=== PATIENT | female | born 1985 | race Caucasian/White ===

== ENCOUNTER 2025-02-13 15:32 | Inpatient (IN) ==
[2025-02-13] MEDS ORDERED: iohexoL-300 100 ML VIAL ONE (16:24)
[2025-02-13] MEDS: HYDROmorphone 0.5 MG/0.5 ML SYRINGE IVP STA ×2 (16:37→19:05)
[2025-02-13] MEDS: ONDANSETRON 4 MG/2 ML VIAL IVP STA (16:37)
[2025-02-13 16:45] LABS: HCG,QUALITATIVE BLOOD NEGATIVE
[2025-02-13 16:57] LABS: BILIRUBIN,URINE SMALL (NEGATIVE); GLUCOSE, URINE (UA) NEGATIVE (NEGATIVE); KETONES,URINE (UA) 15 mg/dL (NEGATIVE); LEUKOCYTE ESTERASE, URINE NEGATIVE (NEGATIVE); NITRITE,URINE NEGATIVE (NEGATIVE); OCCULT BLOOD,URINE NEGATIVE (NEGATIVE); PROTEIN,URINE 30 mg/dL (NEGATIVE); UROBILINOGEN,URINE 1 (NORMAL) E.U./dL (NORMAL)
[2025-02-13 16:59] LABS: CLARITY,URINE CLEAR (CLEAR)
[2025-02-13] MEDS: iohexoL-300 100 ML VIAL IVP ONE (17:05)
[2025-02-13 17:06] LABS: BACTERIA,URINE Many /HPF (None Seen); MUCUS,URINE Few Strands; RBC,URINE None Seen /HPF (0-5); SQUAMOUS EPITHELIAL CELL,UR MANY Squamous (<= Few); WBC,URINE 0-3 /HPF (0-5)
--- NOTE | 2025-02-13 17:24 | CT Report ---
PROCEDURE: CT Abdomen/Pelvis W INDICATIONS: RLQ Abdominal pain, appendicitis suspected CONTRAST: Omni 300 100ml TECHNIQUE: After the administration of intravenous contrast, a CT scan of the abdomen and pelvis was performed. Images were recorded and evaluated at appropriate window settings. Reformats: coronal and sagittal. F or radiation dose reduction, the following was used: automated exposure control, adjustment of mA and /or kV according to patient size. COMPARISON: None. FINDINGS: Image quality: Diagnostic. Lower chest: Mild bibasilar dependent atelectasis is seen. Heart size is normal, no pericardial effus ion. Included portion of right breast implant is intact. Liver: No solid mass. Gallbladder: No radiopaque stones or wall thickening. Biliary tree: No intrahepatic or extrahepatic dilation, accounting for age. Spleen: No splenomegaly. Pancreas: No pancreatic ductal dilation. Adrenals: No adrenal nodule. Kidneys and ureters: No hydronephrosis. Small simple appearing left renal cyst is seen. No renal cyst ic lesion which requires follow up. No solid mass. Stomach, bowel and peritoneum: No abnormal appendix is visualized in right lower quadrant. Peripheral ly enhancing and septated hypodense area is noted in right lower quadrant measures up to 7.9 x 9.5 x 6.2 cm enlarged uterus craniocaudal, transverse and AP dimensions respectively best seen on series 2 image 99 and series 4 image 38. Associated adjacent bowel wall thickening and mild to moderate mesent nivia fat stranding is seen. No extraluminal air.. No peritoneal free fluid of free air. No other area of abnormal bowel wall thickening. Lymph nodes: No central or retroperitoneal adenopathy. Vessels: No infrarenal aortic aneurysm. Patent portal vein. PELVIS Reproductive organs: Unremarkable. Bladder: No abnormal wall thickening. Pelvic lymph nodes: No pelvic adenopathy by size criteria. Bones: No aggressive osseous abnormality. Other: No significant ventral or inguinal hernia. IMPRESSION: 1. Finding is concerning for large abscess collection in right lower quadrant measures up to 7.9 x 9. 5 x 6.2 cm in size, possibly secondary to subcutaneous appendicitis. No abnormal appendix is identifi ed. Differential diagnosis would include large cystic neoplasm. Clinical correlation is recommended. 2. No other area of abnormal bowel wall thickening. No peritoneal free fluid of free air. No gross en larged lymph nodes are seen in abdomen or pelvis. Reviewed by: Shorty Gilbert MD on 02/13/2025 5:23 PM PDT Approved by: Shorty Gilbert MD on 02/13/2025 5:23 PM PDT Station ID: [id number]
--- NOTE | 2025-02-13 17:31 | ED Physician Documentation ---
PD HPI ABD PAIN Stated complaint Stated Complaint: RLQ ABD PX Chief complaint Chief Complaint: Abd Pain Additional information Additional information: 39-year-old female with history of depression hypothyroid disorder presents emergency department for right lower quadrant pain that started on 01/27. She said that she had some nausea vomiting fevers and chills since then but has been trying to ignore it since then. Patient does note that she has been having some right lower quadrant swelling and mass sensation in her right abdomen as well she wakes up drenching in sweat throughout the night periodically she went to the walk-in clinic and they did some basic labs and patient was found to be tachycardic with a significant white count of 19 and sent her here to the emergency department for further evaluation. Patient denies any chance of her being she is on control last menses was late December. Meds/Allgy Home Medications Ambulatory Orders Medication Instructions Recorded Confirmed norethindrone 1 mg-ethinyl See Rx Instructions .Route 12/18/24 02/13/25 estradiol 10 mcg (24)-iron 10 .COMPLEX #84 tabs mcg(2) tablet (Lo Loestrin Fe) celecoxib 200 mg capsule 200 mg PO BID PRN pain #20 caps 02/13/25 02/13/25 escitalopram oxalate 5 mg tablet 10 mg PO QDAY 02/13/25 02/13/25 (Lexapro) levothyroxine 75 mcg capsule 75 mcg PO QDAY 02/13/25 02/13/25 Allergies Allergies Allergy/AdvReac Type Severity Reaction Status Date / Time Sulfa (Sulfonamide AdvReac Intermediate Rash Verified 02/13/25 15:58 Antibiotics) PFSH Active Problems All Active Problems (Updated 02/13/25 @ 18:50 by Joss Mckenzie DNP) Intra-abdominal abscess (Acute) Perforated appendicitis (Acute) Tachycardia (Acute) Elevated C-reactive protein (CRP) (Acute) Neutrophilic leukocytosis (Acute) Decreased range of motion of hip (Acute) Decrease in appetite (Acute) Night sweats (Acute) Right lower quadrant pain (Acute) Acute bacterial sinusitis (Acute) Social History Social History (Updated 02/13/25 @ 16:04 by Donna Solorzano RN) Smoking Status: Never smoker Living arrangement: At home Marital Status: Support Person: Yes Relationship: Spouse Do you feel safe in your home environment?: Yes Suffered physical, verbal, emotional, or financial abuse?: No POLST Patient has POLST: No Exam Constitutional normal general appearance, no apparent distress, average body habitus, no limitations and alert HENMT normocephalic and head/scalp atraumatic Eyes PERRL Chest inspection of chest normal Respiratory breath sounds equal bilaterally and normal respiratory effort Cardiovascular normal heart rate noted Gastrointestinal abdomen normal to inspection, abdomen soft to palpation, tender to palpation (severe) and (RLQ), nondistended and mass noted (RLQ) (firm) Genitourinary no CVA tenderness Extremities normal to inspection Psychiatry mental status grossly normal, oriented x3, thought process normal, cooperative and affect normal Results Vitals Vitals: Vital Signs - 24 hr 02/13/25 15:56 02/13/25 16:05 02/13/25 16:37 Temperature 37.7 C Temperature Source Temporal Artery Scan Pulse Rate 103 H Respiratory Rate 20 Blood Pressure 128/91 H O2 Saturation 99 O2 Source Room air Pain Intensity 7 7 7 02/13/25 16:49 02/13/25 17:14 02/13/25 18:10 Temperature Temperature Source Pulse Rate 94 89 Respiratory Rate 16 16 Blood Pressure 124/87 105/64 O2 Saturation 98 97 O2 Source Room air Pain Intensity 7 2 02/13/25 18:42 02/13/25 19:00 02/13/25 19:05 Temperature Temperature Source Pulse Rate 105 H Respiratory Rate 18 Blood Pressure 118/73 O2 Saturation 99 O2 Source Room air Pain Intensity 5 5 Oxygen O2 Source Room air Labs Labs: Laboratory Tests 02/13/25 02/13/25 14:48 16:36 Serum HCG, Qual NEGATIVE Urine Color DARK YELLOW Urine Clarity CLEAR Urine pH 6.0 Ur Specific [place] 1.020 Urine Protein 30 H Urine Glucose (UA) NEGATIVE Urine Ketones 15 H Urine Occult Blood NEGATIVE Urine Nitrite NEGATIVE Urine Bilirubin SMALL H Urine Urobilinogen 1 (NORMAL) Ur Leukocyte Esterase NEGATIVE Urine RBC None Seen Urine WBC 0-3 Ur Squamous Epith Cells MANY Squamous H Urine Bacteria Many H Urine Mucus Few Strands Ur Microscopic Review INDICATED Urine Culture Comments NOT INDICATED Rads (name of study) Abdomen pelvis CT with: Relevant Findings:: Final report received, Discussed with rads (Dr. Vladimir Wells), Critical result and EMP independent interpretation of test Interpretation: IMPRESSION: 1. Finding is concerning for large abscess collection in right lower quadrant measures up to 7.9 x 9.5 x 6.2 cm in size, possibly secondary to subcutaneous appendicitis. No abnormal appendix is identified. Differential diagnosis would include large cystic neoplasm. Clinical correlation is recommended. 2. No other area of abnormal bowel wall thickening. No peritoneal free fluid of free air. No gross enlarged lymph nodes are seen in abdomen or pelvis. PD Medical Decision Making ED course ED course: 39-year-old female presents emergency department for right lower quadrant pain differentials include but not limited to neoplasm, acute appendicitis, ruptured appendicitis, ovarian torsion, ovarian cyst. Labs are complete from the urgent care walk-in clinic she has significant leukocytosis, WBC 19.5 mild anemia hemoglobin 10.5 hematocrit 32.3 platelet count slightly elevated at 492 mild hyponatremia 133 glucose 143 CRP elevated at 16.4 normal lipase. Negative test. She has ketones in her urine no leukocytes or nitrates. CT abdomen pelvis was complete for further evaluation and reveals a very large abscess in the right lower quadrant measuring up to 7.9 x 9.5 x 6.2 cm possibly secondary to perforated appendicitis. Differentials from radiology include possible cystic neoplasm versus perforated appendicitis. I spoke with Dr. Wells who is the on-call radiologist tomorrow who has graciously agreed to drain the abscess tomorrow with the drain 2 sets of blood cultures were collected today due to tachycardia and leukocytosis and patient was started on IV Zosyn. I spoke with Cassy Murray who is graciously agreed to admit the patient to medicine services and I also spoke with surgeon Dr. Duenas who will follow along with the patient's case. Patient is agreeable to stay. Discharge Plan Discharge Patient Disposition: [facility] DC/Xfer Condition: Stable Clinical Impression: Perforated appendicitis, Neutrophilic leukocytosis, Intra-abdominal abscess
[2025-02-13] MEDS ORDERED: PIPERACILLIN/TAZOBACTAM 3.375 GM in SODIUM CHLORIDE 0.9% MINIBAG 100 ML IV STA (18:46)
[2025-02-13] MEDS: PIPERACILLIN/TAZOBACTAM 4.5 GM in SODIUM CHLORIDE 0.9% MINIBAG 100 ML IV STA (19:05)
--- NOTE | 2025-02-13 21:06 | HISTORY & PHYSICAL EXAMINATION ---
Chief Complaint Chief Complaint Chief Complaint: abdominal pain History of Present Illness Admitted From Admitted From:: home History Obtained From Records Reviewed: none History obtained from: patient and spouse History of Present Illness HPI Comment/Other: 39-year-old female who presents to the emergency department with abdominal pain and fever. She had an episode of what she thought was abdominal pain and gastroenteritis on January 27. She laid in bed that entire weekend with intermittent vomiting she attributed her abdominal pain to having pulled a muscle. She had small amount of loose stool around that time, but since that time has had persistent night sweats chills and fatigue as well as decreased isidoro etite. She continues to have occasional loose stools. The symptoms had been ongoing since 27 January and at times she has gotten so dizzy it has been difficult for her to stand upright. Therefore today she decided to go to the walk-in clinic. She is also noted pain in her groin and her hip particularly when she lifts up her right leg. She went to the walk-in clinic today and was referred to the emergency department due to concerning findings on her labs. Meds/Allgy Home Medications Ambulatory Orders Medication Instructions Recorded Confirmed norethindrone 1 mg-ethinyl See Rx Instructions .Route 12/18/24 02/13/25 estradiol 10 mcg (24)-iron 10 .COMPLEX #84 tabs mcg(2) tablet (Lo Loestrin Fe) celecoxib 200 mg capsule 200 mg PO BID PRN pain #20 caps 02/13/25 02/13/25 escitalopram oxalate 5 mg tablet 10 mg PO QDAY 02/13/25 02/13/25 (Lexapro) levothyroxine 75 mcg capsule 75 mcg PO QDAY 02/13/25 02/13/25 Allergies Allergies Allergy/AdvReac Type Severity Reaction Status Date / Time Sulfa (Sulfonamide AdvReac Intermediate Rash Verified 02/13/25 15:58 Antibiotics) PFSH Active Problems All Active Problems (Updated 02/13/25 @ 21:14 by CHALO Mcdowell) Depression (Acute) Hypothyroid (Acute) Intra-abdominal abscess (Acute) Perforated appendicitis (Acute) Tachycardia (Acute) Elevated C-reactive protein (CRP) (Acute) Neutrophilic leukocytosis (Acute) Decreased range of motion of hip (Acute) Decrease in appetite (Acute) Night sweats (Acute) Right lower quadrant pain (Acute) Acute bacterial sinusitis (Acute) Surgical History Surgical History (Updated 02/13/25 @ 21:14 by CHALO Mcdowell) S/P tonsillectomy S/P breast augmentation Social History Social History (Updated 02/13/25 @ 16:04 by Donna Solorzano RN) Smoking Status: Never smoker Living arrangement: At home Marital Status: Support Person: Yes Relationship: Spouse Level: Independent Do you feel safe in your home environment?: Yes Suffered physical, verbal, emotional, or financial abuse?: No POLST Patient has POLST: No Review of Systems Status of ROS: 10 or more systems reviewed and unremarkable except as noted in history and below Constitutional Reports: Fatigue, Fever, Chills, Malaise, Diaphoresis, Night sweats, Changes in appetite or eating habits and Poor appetite Eyes Denies: Vision loss Ears, nose, mouth, and throat Denies: Tinnitus or Vertigo Cardiovascular Reports: lightheadedness and other (Tachycardia); Denies: shortness of breath with exertion Respiratory Denies: Shortness of breath, Cough or SOB with exertion Gastrointestinal Reports: Abdominal pain, Nausea, Vomiting and Poor appetite; Denies: Blood in stool Genitourinary Denies: Painful urination, Urinary frequency, Urinary urgency or Pelvic pain Musculoskeletal Reports: Other (Right hip pain); Denies: Back pain Integumentary/Breast Reports: Rash Neurological Denies: Vertigo Psychiatric Denies: Depression or Anxiety Endocrine Reports: Fatigue Hematologic/Lymphatic Denies: Anemia Prior Level of Functionality: Functional adult. 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. Exam Constitutional normal general appearance and no apparent distress Well-groomed [facility] normocephalic Eyes conjunctivae normal and no scleral icterus Neck/C-Spine visual inspection normal Lymph no lymphadenopathy noted Chest inspection of chest normal Respiratory breath sounds equal bilaterally and normal respiratory effort Cardiovascular normal heart rate noted mild tachycardia, less than 110 Gastrointestinal nondistended and normoactive bowel sounds firmness in the RLQ on abdominal exam. no rebound. Genitourinary no CVA tenderness Back/Pelvis spine normal to inspection Extremities normal to inspection and normal to palpation Neurology no movement abnormality noted, speech normal and GCS 15 Psychiatry mental status grossly normal, oriented x3 and cooperative Skin skin color normal Conclusion/Plan Problem List (1) Intra-abdominal abscess: Plan: CT shows right lower quadrant intra-abdominal abscess likely secondary to perforated appendicitis. The abscess is large, 7.9 x 9.5 x 6.2 cm there is adjacent bowel wall thickening and mesenteric fat stranding. There is no peritoneal fluid or free air. The appendix is not visualized. Leukocytosis of 19.5 most likely related to this she does have a mild anemia with a hemoglobin of 10.5 we will continue to monitor. Her sodium is 133 we will continue to monitor I discussed this patient with Joss Mckenzie and decision was made to admit her to inpatient status for interventional radiology guided drainage of the intra- abdominal abscess. I have requested that she be n.p.o. after midnight. I have ordered ultrasound-guided drainage. I have ordered the appropriate culture and sensitivity. Have discussed this patient with Dr. Duenas who will see this patient in the morning and take over the surgical management of her intra-abdominal abscess. Pending cultures I have ordered Zosyn for antibiosis (2) Perforated appendicitis: Plan: Intra-abdominal abscesses most likely secondary to perforated appendicitis. Intra-abdominal abscess will need to be managed and patient will likely undergo interval appendectomy. I have discussed this patient with Dr. Duenas who will see her in the morning and further discuss surgical plan. (3) Hypothyroid: Plan: Will continue medication When she is able to take p.o. She is on Synthroid 75 mcg daily. (4) Depression: Plan: Continue escitalopram when she is able to take p.o. She is on 10 mg daily. (5) S/P breast augmentation: Plan: not relevant- no problems w anesthesia in the past (6) S/P tonsillectomy: Plan: not relevant, as a child. Plan I have spent 78 minutes in the care of this patient today. This includes time [id number], review and ordering of diagnostic imaging and laboratory studies and consultation with other providers. Monitoring the patient's signs symptoms, evaluation of medication effectiveness and patient's response to treatment. Lab Results Lab results reviewed: Yes Core Measures Anticipated LOS I expect patient to be DC'd or transferred within 96 hours.: Yes Issues Hospital Issues and Management Plan: Intra-abdominal abscess likely secondary to perforated appendicitis. Surgical source control with interventional radiology drainage and culture and sensitivity. Will place the patient on Zosyn. Surgical consultation is pending. DVT/VTE - Prophylaxis VTE/DVT Device ordered at admit?: Yes VTE/DVT Prophylaxis med ordered at admit?: No Not Ordered - Medical Reason: Contraindicated (Hold pending drainage procedure)
[2025-02-13] MEDS: SODIUM CHLORIDE 0.9% 1,000 ML IV SCH (21:43)
[2025-02-13] MEDS: oxyCODONE 5 MG TABLET PO PRN (21:43)
[2025-02-13] MEDS: ESCITALOPRAM 10 MG TABLET PO SCH (21:45)
[2025-02-14] MEDS: PIPERACILLIN/TAZOBACTAM 3.375 GM in SODIUM CHLORIDE 0.9% MINIBAG 100 ML IV SCH (04:11)
[2025-02-14] MEDS: SODIUM CHLORIDE FLUSH 0.9% 10 ML SYRINGE IVP SCH (04:12)
[2025-02-14] MEDS: HYDROmorphone 0.5 MG/0.5 ML SYRINGE IVP PRN (04:17)
[2025-02-14 05:16] LABS: BASOPHILS % (AUTO) 0.4 %; EOSINOPHILS % (AUTO) 0.1 %; HCT - HEMATOCRIT 28.8 % (37.0-47.0); HGB - HEMOGLOBIN 9.4 g/dL (12.0-16.0); LYMPHOCYTES % (AUTO) 6.9 %; MEAN CORPUSCULAR HEMOGLOBIN 29.7 pg (27.0-31.0); MEAN CORPUSCULAR HGB CONC 32.6 g/dL (32.0-36.0); MEAN CORPUSCULAR VOLUME 91.1 fL (81.0-99.0); MEAN PLATELET VOLUME 8.8 fL (7.9-10.8); MONOCYTES % (AUTO) 8.8 %; NEUTROPHILS % (AUTO) 82.8 %; PLT - PLATELET COUNT 433 10^3/uL (130-450); RED BLOOD COUNT 3.16 10^6/uL (4.20-5.40); RED CELL DISTRIBUTION WIDTH 12.9 % (12.0-15.0); WHITE BLOOD COUNT 17.6 x10^3/uL (4.8-10.8)
[2025-02-14 05:23] LABS: ABNORMAL LYMPHS % (MANUAL) 0 %; CALCIUM 8.3 mg/dL (8.5-10.3); CREATININE 0.8 mg/dL (0.6-1.3); POTASSIUM 4.1 mmol/L (3.5-4.5)
[2025-02-14 06:34] LABS: BAND NEUTROPHILS % (MANUAL) 3 %; DIFFERENTIAL COMMENT MANUAL DIFFERENTIAL; LYMPHOCYTES # (MANUAL) 1.9 10^3/uL (1.5-3.5); LYMPHOCYTES % (MANUAL) 11 %; MONOCYTES # (MANUAL) 1.6 10^3/uL (0.0-1.0); NEUTROPHILS # (MANUAL) 14.1 10^3/uL (1.5-6.6); PLATELET ESTIMATE, MANUAL NORMAL (130-450,000) (NORMAL); PLATELET MORPHOLOGY NORMAL APPEARANCE (NORMAL); RBC MORPHOLOGY (MULTIPLE) NORMAL APPEARANCE (NORMAL); WBC MORPHOLOGY (MULTIPLE) NORMAL APPEARANCE (NORMAL)
[2025-02-14] MEDS: LEVOTHYROXINE 75 MCG TABLET PO SCH ×2 (07:07→08:57)
--- NOTE | 2025-02-14 11:22 | CONSULTATION NOTE ---
Referring Provider Name of Referring Provider:: Marlin Holguin) Consult Date: 02/14/25 Chief Complaint Chief Complaint Chief Complaint: RLQ pain History of Present Illness Admitted From Admitted From:: ED History Obtained From Records Reviewed: yes History obtained from: patient, chart, primary team History of Present Illness HPI Comment/Other: 39 y/o F presents with abdominal pain and fevers. She has been experiencing sharp pain in her abdomen for more than two weeks. She initially thought she had a pulled muscle. At the time of her symptom onset (01/24/25), the patient noted some loose stools without blood, which have continued intermittently. The patient does report a period of time about two days after symptom onset when her pain improved significantly. She has had persistent night sweats and decreased appetite. Yesterday, she felt dizzy and presented to the walk in clinic where she demonstrated signs of systemic illness (tachycardia, leukocytosis) and was referred to the ED. There, she underwent CT which demonstrates a large abscess in the RLQ. For this, she was admitted, IR guided drain placement and IV antibiotics were ordered. Surgery is asked to follow along in the care of this patient. [facility] Active Problems All Active Problems Depression (Acute) Hypothyroid (Acute) Intra-abdominal abscess (Acute) Perforated appendicitis (Acute) Tachycardia (Acute) Elevated C-reactive protein (CRP) (Acute) Neutrophilic leukocytosis (Acute) Decreased range of motion of hip (Acute) Decrease in appetite (Acute) Night sweats (Acute) Right lower quadrant pain (Acute) Acute bacterial sinusitis (Acute) Surgical History Surgical History S/P tonsillectomy S/P breast augmentation Social History Social History (Updated 02/14/25 @ 11:19 by Mahi Duenas MD) Smoking Status: Never smoker Living arrangement: At home Marital Status: Support Person: Yes Relationship: Spouse Level: Independent Do you feel safe in your home environment?: Yes Suffered physical, verbal, emotional, or financial abuse?: No 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 Retired: No POLST Patient has POLST: No Meds/Allgy Home Medications Ambulatory Orders Medication Instructions Recorded Confirmed norethindrone 1 mg-ethinyl See Rx Instructions .Route 12/18/24 02/14/25 estradiol 10 mcg (24)-iron 10 .COMPLEX #84 tabs mcg(2) tablet (Lo Loestrin Fe) celecoxib 200 mg capsule 200 mg PO BID PRN pain #20 caps 02/13/25 02/14/25 escitalopram oxalate 5 mg tablet 10 mg PO QDAY 02/13/25 02/14/25 (Lexapro) levothyroxine 75 mcg capsule 75 mcg PO QDAY 02/13/25 02/14/25 naltrexone 4.5 mg capsule 4.5 mg PO HS 02/14/25 02/14/25 (Lotrexone) Allergies Allergies Allergy/AdvReac Type Severity Reaction Status Date / Time Sulfa (Sulfonamide AdvReac Intermediate Rash Verified 02/14/25 12:36 Antibiotics) Results Lab Results Lab results reviewed: Yes 02/14/25 05:05 02/14/25 05:05 Other Lab Results: Lab Results x24hrs 02/14/25 02/13/25 02/13/25 Range/Units 05:05 16:36 14:48 WBC 17.6 H (4.8-10.8) x10^3/uL RBC 3.16 L (4.20-5.40) 10^6/uL Hgb 9.4 L (12.0-16.0) g/dL Hct 28.8 L (37.0-47.0) % MCV 91.1 (81.0-99.0) fL MCH 29.7 (27.0-31.0) pg MCHC 32.6 (32.0-36.0) g/dL RDW 12.9 (12.0-15.0) % Plt Count 433 (130-450) 10^3/uL MPV 8.8 (7.9-10.8) fL Neut # (Auto) Not Reportable Lymph # (Auto) Not Reportable [place] # (Auto) Not Reportable Eos # (Auto) Not Reportable Baso # (Auto) Not Reportable Absolute Nucleated RBC Not Reportable Total Counted 100 Band Neuts % (Manual) 3 (0 - 10) % Abnorm Lymph % (Manual) 0 % Nucleated RBC % Not Reportable Neutrophils # (Manual) 14.1 H (1.5-6.6) 10^3/uL Lymphocytes # (Manual) 1.9 (1.5-3.5) 10^3/uL Monocytes # (Manual) 1.6 H (0.0-1.0) 10^3/uL Eosinophils # (Manual) 0.0 (0-0.7) 10^3/uL Basophils # (Manual) 0.0 (0-0.1) 10^3/uL Differential Comment MANUAL DIFFERENTIAL WBC Morphology NORMAL APPEARANCE (NORMAL) Platelet Estimate NORMAL (130-450,000) (NORMAL) Platelet Morphology NORMAL APPEARANCE (NORMAL) RBC Morph Micro Appear NORMAL APPEARANCE (NORMAL) Sodium 134 L (135-145) mmol/L Potassium 4.1 (3.5-4.5) mmol/L Chloride 102 (101-111) mmol/L Carbon Dioxide 25 (21-32) mmol/L Anion Gap 7.0 (6-13) BUN 6 (6-20) mg/dL Creatinine 0.8 (0.6-1.3) mg/dL Estimated GFR (MDRD) 79 L (>89) Glucose 95 (74-104) mg/dL Calcium 8.3 L (8.5-10.3) mg/dL Serum HCG, Qual NEGATIVE Urine Color DARK YELLOW Urine Clarity CLEAR (CLEAR) Urine pH 6.0 (5.0-7.5) PH Ur Specific [place] 1.020 (1.002-1.030) Urine Protein 30 H (NEGATIVE) mg/dL Urine Glucose (UA) NEGATIVE (NEGATIVE) mg/dL Urine Ketones 15 H (NEGATIVE) mg/dL Urine Occult Blood NEGATIVE (NEGATIVE) Urine Nitrite NEGATIVE (NEGATIVE) Urine Bilirubin SMALL H (NEGATIVE) Urine Urobilinogen 1 (NORMAL) (NORMAL) E.U./dL Ur Leukocyte Esterase NEGATIVE (NEGATIVE) Urine RBC None Seen (0-5) /HPF Urine WBC 0-3 (0-5) /HPF Ur Squamous Epith Cells MANY Squamous H (<= Few) Urine Bacteria Many H (None Seen) /HPF Urine Mucus Few Strands Ur Microscopic Review INDICATED Urine Culture Comments NOT INDICATED Diagnostic Imaging Results Diagnostic Imaging Results: positive Final report reviewed and Read independently Diagnostic Imaging Results Comments: CT abd/pelvis demonstrates large abscess in RLQ. Appendix is not identified. No free air. Conclusion and Plan Consultation Note Consultation Note: 39 y/o F with: 1. RLQ abscess - Likely perforated appendicitis; this diagnosis fits well with the patients history, physical exam, labs, and imaging. - Agree with IV abx, IR guided drain placement today for source control - Ok to adat once drain in place. Transition to PO abx when tolerating diet. - Consider repeat CT in 5 days to assess for improvement, if leukocytosis has not resolved. We may consider repeat CT at some point as well to determine utility of possible interval appendectomy. - I discussed this plan of care with the patient and the primary team. 2. hypothyroidism, depression - ok to restart home meds when able to tolerate diet - as per primary team Thank you for consulting the general surgery team in the care of this patient! We will continue to follow. Review of Systems Status of ROS: 10 or more systems reviewed and unremarkable except as noted in history and below Exam Exam GEN: No acute distress, appears stated age, alert and oriented HEENT: NCAT, MMM, EOMI NEURO: CN II-XII grossly intact, no obvious focal deficits CV: RRR PULM: non labored, on RA ABD: soft, slight RUQ and marked RLQ ttp, no rebound or guarding, negative Rovsing sign, +psoas sign CIRCULATORY: no clubbing, cyanosis, or edema SKIN: no lesions appreciated LYMPH: no obvious lymphadenopathy MSK: 4/4 strength in all extremities PSYCH: Affect is appropriate
--- NOTE | 2025-02-14 12:08 | PHARMACY PROGRESS NOTE ---
Best Possible Medication History Admit Date and Time: 02/13/251935 Home Medications Medication Instructions Recorded Confirmed Type norethindrone 1 mg-ethinyl See Rx Instructions .Route 12/18/24 02/14/25 Rx estradiol 10 mcg (24)-iron 10 .COMPLEX #84 tabs mcg(2) tablet (Lo Loestrin Fe) celecoxib 200 mg capsule 200 mg PO BID PRN pain #20 caps 02/13/25 02/14/25 Rx escitalopram oxalate 5 mg tablet 10 mg PO QDAY 02/13/25 02/14/25 History (Lexapro) levothyroxine 75 mcg capsule 75 mcg PO QDAY 02/13/25 02/14/25 History naltrexone 4.5 mg capsule 4.5 mg PO HS 02/14/25 02/14/25 History (Lotrexone) Processed by: Pharmacy Medications reviewed in ED?: No Medication History completed: Yes Patient Interview: Completed Secondary Source(s): Insurance records [facility] Statement: Per patient interview with pharmacist and review of [employer] records. As the person ultimately responsible for medication therapy, providers are able to order a medication from an existing home medication list in [facility] via the "Reconcile Routine" prior to Confirmation of that medication by telecommunications support. Such practice is discouraged except when the physician, in their clinical judgment, deems that a medical need exists for a medication without regard to previous use.
[2025-02-14] MEDS ORDERED: LIDOCAINE-MPF 1% 5 ML VIAL ONE (12:47)
[2025-02-14] MEDS: LIDOCAINE-MPF 1% 5 ML VIAL TD ONE (13:48)
--- NOTE | 2025-02-14 15:41 | CT Report ---
PROCEDURE: CT Peritoneal Absc Drain PREPROCEDURE DIAGNOSIS: Perforated appendicitis. POSTPROCEDURE DIAGNOSIS: S/P technically successful CT-guided right lower quadrant abscess drainage OPERATIVE PHYSICIAN: Caio Wells M.D. OPERATIVE PROCEDURES PERFORMED: CT-guided right lower quadrant abscess drainage TECHNIQUE: Informed consent was obtained from the patient. The patient was sterilely prepped and draped. 1% lid ocaine was used as a local anesthetic. Under CT guidance, a 18-gauge DTN needle was advanced into the fluid collection. After a small amount of fluid returned through the needle, exchange was made over a 0.035 inch wire, and the tract was serially dilated to allow for placement of a 12 Serbian pigtail d rainage tube. Approximately 20 ml of magaly pus fluid were aspirated. A sample was sent for laboratory studies. The catheter was placed and pigtail position and was sterilely secured in sterilely bandage d. It was set to external gravity bag drainage. The patient tolerated the procedure well with no imme diate complications noted. FINDINGS: Uncomplicated access to the abscess. IMPRESSION: 1. Technically successful CT-guided right lower quadrant abscess drainage Reviewed by: Caio Wells MD on 02/14/2025 3:40 PM PDT Approved by: Caio Wells MD on 02/14/2025 3:40 PM PDT Station ID: [id number]
[2025-02-14] MEDS: ACETAMINOPHEN 325 MG TABLET PO PRN (17:12)
--- NOTE | 2025-02-14 18:12 | PROVIDER PROGRESS NOTE ---
Subjective Prog Note Date Prog Note Date: 02/14/25 Subjective Subjective: She feels a bit better after overnight abx, and even better after drain placement. Still having occasional sweats. Poor appetite. Current Medications Current Medications Current Medications: Current Medications Generic Name Dose Route Start Last Admin Trade Name Freq PRN Reason Stop Dose Admin Acetaminophen 650 mg 02/13/25 20:43 02/14/25 17:12 Acetaminophen 325 Mg Tablet PO 650 mg Q4HR PRN Administration Pain 1 to 4, or Fever Escitalopram Oxalate 10 mg 02/13/25 20:43 02/14/25 09:01 Escitalopram 10 Mg Tablet PO 10 mg DAILY LEN Administration Hydromorphone HCl 0.5 mg 02/13/25 21:04 02/14/25 12:31 Hydromorphone 0.5 Mg/0.5 Ml Syringe IVP 0.5 mg Q2H PRN Administration Severe Pain (Level 7-10) Piperacillin Sod/Tazobactam 100 mls @ 25 mls/hr 02/14/25 04:00 02/14/25 16:52 Sod 3.375 gm/ Sodium Chloride IV Infused Q8H LEN Infusion Sodium Chloride 1,000 mls @ 100 mls/hr 02/13/25 20:43 02/14/25 07:52 Normal Saline 0.9% IV 100 mls/hr .Q10H LEN Administration Levothyroxine Sodium 75 mcg 02/14/25 09:00 02/14/25 09:01 Levothyroxine 75 Mcg Tablet PO 75 mcg 0600 LEN Administration Ondansetron HCl 4 mg 02/13/25 20:43 Ondansetron 4 Mg/2 Ml Vial IVP Q6HR PRN Nausea / Vomiting Oxycodone HCl 5 mg 02/13/25 20:43 02/14/25 17:12 Oxycodone 5 Mg Tablet PO 5 mg Q4HR PRN Administration Pain 5 to 7 Patient Own Med [Lo 1 each 02/14/25 09:00 02/14/25 10:19 Loestrin Fe] PO Not Given DAILY LEN Sodium Chloride 10 ml 02/13/25 20:43 Sodium Chloride Flush 0.9% 10 Ml Syringe IVP PRN PRN NEEDED PER PROVIDER ORDERS Sodium Chloride 10 ml 02/14/25 01:00 02/14/25 17:03 Sodium Chloride Flush 0.9% 10 Ml Syringe IVP Not Given 0100,0900,1700 [facility] Objective Vital Signs/Intake & Output Reviewed Vital Signs: Yes Vital Signs: Vital Signs x48h Temp Pulse Resp BP Pulse Ox 02/14/25 15:43 36.7 C 90 20 99/60 96 Intake & Output: Intake & Output 02/11/25 02/12/25 02/13/25 02/14/25 23:59 23:59 23:59 23:59 Intake Total 100 100 1200 / 1200 Output Total Balance 100 / 100 1199 / 1199 Weight (kg) 67.585 kg Objective General Appearance: positive No acute distress and Alert Eyes Bilateral: positive Normal inspection ENT: positive ENT inspection nml Neck: positive Nml inspection Cardiovascular: positive Regular rate & rhythm and Other (occasional tachycardia to the low 100's) Abdomen: positive Nml bowel sounds and Tenderness (RLQ) Skin: positive Color nml Neurologic/Psychiatric: positive Oriented x3 Lab Results 02/14/25 05:05 02/14/25 05:05 Other Labs: Lab Results x24hrs 02/14/25 Range/Units 05:05 WBC 17.6 H (4.8-10.8) x10^3/uL RBC 3.16 L (4.20-5.40) 10^6/uL Hgb 9.4 L (12.0-16.0) g/dL Hct 28.8 L (37.0-47.0) % MCV 91.1 (81.0-99.0) fL MCH 29.7 (27.0-31.0) pg MCHC 32.6 (32.0-36.0) g/dL RDW 12.9 (12.0-15.0) % Plt Count 433 (130-450) 10^3/uL MPV 8.8 (7.9-10.8) fL Neut # (Auto) Not Reportable Lymph # (Auto) Not Reportable [place] # (Auto) Not Reportable Eos # (Auto) Not Reportable Baso # (Auto) Not Reportable Absolute Nucleated RBC Not Reportable Total Counted 100 Band Neuts % (Manual) 3 (0 - 10) % Abnorm Lymph % (Manual) 0 % Nucleated RBC % Not Reportable Neutrophils # (Manual) 14.1 H (1.5-6.6) 10^3/uL Lymphocytes # (Manual) 1.9 (1.5-3.5) 10^3/uL Monocytes # (Manual) 1.6 H (0.0-1.0) 10^3/uL Eosinophils # (Manual) 0.0 (0-0.7) 10^3/uL Basophils # (Manual) 0.0 (0-0.1) 10^3/uL Differential Comment MANUAL DIFFERENTIAL WBC Morphology NORMAL APPEARANCE (NORMAL) Platelet Estimate NORMAL (130-450,000) (NORMAL) Platelet Morphology NORMAL APPEARANCE (NORMAL) RBC Morph Micro Appear NORMAL APPEARANCE (NORMAL) Sodium 134 L (135-145) mmol/L Potassium 4.1 (3.5-4.5) mmol/L Chloride 102 (101-111) mmol/L Carbon Dioxide 25 (21-32) mmol/L Anion Gap 7.0 (6-13) BUN 6 (6-20) mg/dL Creatinine 0.8 (0.6-1.3) mg/dL Estimated GFR (MDRD) 79 L (>89) Glucose 95 (74-104) mg/dL Calcium 8.3 L (8.5-10.3) mg/dL Assessment/Plan Problem List (1) Intra-abdominal abscess: Impression: CT shows right lower quadrant intra-abdominal abscess likely secondary to perforated appendicitis. The abscess is large, 7.9 x 9.5 x 6.2 cm there is adjacent bowel wall thickening and mesenteric fat stranding. There is no peritoneal fluid or free air. The appendix is not visualized. Her leukocytosis is improving from 19.5 on admission to 17.6 this morning with treatment of IV antibiotics.I have ordered repeat CBC for the a.m. She is continuing to require parenteral narcotics for her abdominal pain. Since admission she has gotten about 3 doses of IV Dilaudid. She is also using oxycodone has had about 3 doses since admission. Discussed briefly with Dr. Langley of radiology who will perform CT-guided drainage of the abscess. When patient returns from CT-guided drainage she continues to feel better. There is thick purulent material coming from the drain. Patient seen at the bedside with Dr. Duenas and the drain set up was changed to a MERISSA suction bulb. Seems to be working well. Dr. Duenas has ordered twice daily flushes for the drain. Culture and sensitivity is pending the Gram stain on the drain fluid shows few gram-negative bacilli with many white blood cells, this is as expected and the Zosyn is appropriate antibiosis at this time. (2) Perforated appendicitis: Impression: Intra-abdominal abscesses most likely secondary to perforated appendicitis. Intra-abdominal abscess will need to be managed and patient will likely undergo interval appendectomy. Further imaging studies will be guided by her clinical course. (3) Hyponatremia: Impression: . Sodium 134.This is a slight improvement from 133 at admission. Likely related to her systemic inflammatory response syndrome. As she increases her diet her sodium will probably normalize.I have ordered repeat BMP for the a.m. (4) Hypothyroid: Impression: Synthroid 75 mcg daily. TSH was drawn on admission 1.73. T4 12.5, free T3 2.85 (5) Depression: Impression: continue Lexapro. I have spent 60 minutes in the care of this patient today. This includes time [id number], review and ordering of diagnostic imaging and laboratory studies and consultation with other providers. Monitoring the patient's signs symptoms, evaluation of medication effectiveness and patient's response to treatment.
[2025-02-15 05:31] LABS: BASOPHILS # (AUTO) 0.1 10^3/uL (0.0-0.1); BASOPHILS % (AUTO) 0.4 %; EOSINOPHILS # (AUTO) 0.1 10^3/uL (0.0-0.7); EOSINOPHILS % (AUTO) 0.5 %; HCT - HEMATOCRIT 28.2 % (37.0-47.0); LYMPHOCYTES # (AUTO) 1.7 10^3/uL (1.5-3.5); LYMPHOCYTES % (AUTO) 12.9 %; MEAN CORPUSCULAR HEMOGLOBIN 29.2 pg (27.0-31.0); MEAN CORPUSCULAR HGB CONC 31.9 g/dL (32.0-36.0); MEAN CORPUSCULAR VOLUME 91.6 fL (81.0-99.0); MEAN PLATELET VOLUME 8.8 fL (7.9-10.8); MONOCYTES # (AUTO) 1.1 10^3/uL (0.0-1.0); NEUTROPHILS # (AUTO) 10.3 10^3/uL (1.5-6.6); NEUTROPHILS % (AUTO) 77.7 %; PLT - PLATELET COUNT 422 10^3/uL (130-450); RED BLOOD COUNT 3.08 10^6/uL (4.20-5.40); RED CELL DISTRIBUTION WIDTH 12.9 % (12.0-15.0); WHITE BLOOD COUNT 13.2 x10^3/uL (4.8-10.8)
[2025-02-15 05:44] LABS: CALCIUM 8.4 mg/dL (8.5-10.3); CREATININE 0.6 mg/dL (0.6-1.3); POTASSIUM 3.9 mmol/L (3.5-4.5)
--- NOTE | 2025-02-15 08:36 | PROVIDER PROGRESS NOTE ---
Subjective General Admit Date: 02/13/25 Other Other Information/Narrative: Patient having pain at drain site with changes in position and sitting. Feeling better when she lies down. Patient reports night sweats last night. No nausea, tolerating diet. Wound Assessment Drain Type: IR guided pigtail in RLQ Drain Output Description: purulent Approximate mls Output: 40mL out since placement Review of Systems Status of ROS: 10 or more systems reviewed and unremarkable except as noted in history and below Exam Exam GEN: No acute distress, alert and oriented HEENT: NCAT, MMM, EOMI CV: RRR PULM: non labored, on RA ABD: soft, slight RLQ ttp near drain, no rebound or guarding, drain in place with purulent output CIRCULATORY: no clubbing, cyanosis, or edema Impression/Plan Problem List (1) Intra-abdominal abscess: Plan: - Continue IV abx while cx pending, IR guided drain in place with purulent output - Tolerating regular diet. Will transition to PO meds when able to narrow coverage or when leukocytosis has resolved (whichever occurs first) - Consider repeat CT in 5 days to assess for improvement, if leukocytosis has n ot resolved. We may consider repeat CT at some point as well to determine utility of possible interval appendectomy. (2) Perforated appendicitis: Plan: - Likely perforated appendicitis; this diagnosis fits well with the patients history, physical exam, labs, and imaging. - see above plan related to abscess (3) Hyponatremia: Plan: resolved, continue to monitor (4) Hypothyroid: Plan: stable, continue home meds Qualifiers: Hypothyroidism type: unspecified Qualified Code(s): E03.9 - Hypothyroidism, unspecified (5) Depression: Plan: stable, continue home meds Qualifiers: Depression Type: unspecified Qualified Code(s): F32.A - Depression, unspecified Plan Plan of care discussed with patient and RN. Continue inpatient care until pain controlled with PO meds, on PO abx. Anticipate 1-2 days. Surgery has assumed care as the primary team for this patient
[2025-02-15] MEDS: IBUPROFEN 600 MG TABLET PO SCH ×2 (09:12→14:53)
[2025-02-15] MEDS: ACETAMINOPHEN 325 MG TABLET PO SCH (09:13)
[2025-02-15] MEDS: SODIUM CHLORIDE FLUSH 0.9% 10 ML SYRINGE IVP PRN (20:56)
[2025-02-15] MEDS: ONDANSETRON 4 MG/2 ML VIAL IVP PRN (22:17)
[2025-02-16 05:49] LABS: BASOPHILS % (AUTO) 0.4 %; EOSINOPHILS # (AUTO) 0.1 10^3/uL (0.0-0.7); EOSINOPHILS % (AUTO) 1.1 %; HCT - HEMATOCRIT 27.1 % (37.0-47.0); HGB - HEMOGLOBIN 8.8 g/dL (12.0-16.0); LYMPHOCYTES # (AUTO) 1.4 10^3/uL (1.5-3.5); LYMPHOCYTES % (AUTO) 12.8 %; MEAN CORPUSCULAR HEMOGLOBIN 29.3 pg (27.0-31.0); MEAN CORPUSCULAR HGB CONC 32.5 g/dL (32.0-36.0); MEAN CORPUSCULAR VOLUME 90.3 fL (81.0-99.0); MONOCYTES # (AUTO) 0.7 10^3/uL (0.0-1.0); NEUTROPHILS # (AUTO) 8.9 10^3/uL (1.5-6.6); NEUTROPHILS % (AUTO) 79.3 %; PLT - PLATELET COUNT 447 10^3/uL (130-450); RED CELL DISTRIBUTION WIDTH 12.8 % (12.0-15.0); WHITE BLOOD COUNT 11.2 x10^3/uL (4.8-10.8)
[2025-02-16 06:06] LABS: CALCIUM 8.3 mg/dL (8.5-10.3); CREATININE 0.7 mg/dL (0.6-1.3); POTASSIUM 3.9 mmol/L (3.5-4.5)
--- NOTE | 2025-02-16 08:37 | PROVIDER PROGRESS NOTE ---
Subjective General Admit Date: 02/13/25 Other Other Information/Narrative: Patient much more comfortable with scheduled ibuprofen and tylenol. Able to sit and ambulate with less discomfort. Patient still having night sweats. Tolerating regular diet without n/v in small amounts but she does not have much appetite. +flatus, +BM. Wound Assessment Drain Type: IR guided pigtail in RLQ Drain Output Description: purulent Approximate mls Output: 20mL out in last 24 hours Review of Systems Status of ROS: 10 or more systems reviewed and unremarkable except as noted in history and below Exam Exam GEN: No acute distress, alert and oriented HEENT: NCAT, MMM, EOMI CV: RRR PULM: non labored, on RA ABD: soft, slight RLQ ttp near drain, no rebound or guarding, drain in place with purulent output CIRCULATORY: no clubbing, cyanosis, or edema ABX Reporting Has patient been on IV antibiotics over the past 48 hours?: Yes Impression/Plan Problem List (1) Intra-abdominal abscess: Plan: - Continue IV abx while cx pending, IR guided drain in place with purulent output - Abscess Cx growing GNR, speciation and sensitivites pending - Blood cx wtih NGTD - Tolerating regular diet. Will transition to PO meds when able to narrow coverage or when leukocytosis has resolved (whichever occurs first) - Consider repeat CT 5 days after initial study assess for improvement, if leukocytosis has not resolved. We may consider repeat CT at some point as well to determine utility of possible interval appendectomy. (2) Perforated appendicitis: Plan: - Likely perforated appendicitis; this diagnosis fits well with the patients history, physical exam, labs, and imaging. - see above plan related to abscess (3) Hyponatremia: Plan: resolved, continue to monitor (4) Hypothyroid: Plan: stable, continue home meds Qualifiers: Hypothyroidism type: unspecified Qualified Code(s): E03.9 - Hypothyroidism, unspecified (5) Depression: Plan: stable, continue home meds Qualifiers: Depression Type: unspecified Qualified Code(s): F32.A - Depression, unspecified Plan Plan of care discussed with patient and RN. Continue inpatient care until pain controlled with PO meds, on PO abx. Anticipate another 1-2 days. Surgery has assumed care as the primary team for this patient
[2025-02-16] MEDS ORDERED: ONDANSETRON ODT 4 MG TABLET TL PRN (10:08)
[2025-02-16] MEDS ORDERED: SODIUM CHLORIDE 0.9% MINIBAG 0 ML IV ONE (20:12)
[2025-02-16] MEDS ORDERED: SODIUM CHLORIDE 0.9% MINIBAG 100 ML IV ONE (20:13)
[2025-02-17 05:58] LABS: BASOPHILS # (AUTO) 0.1 10^3/uL (0.0-0.1); BASOPHILS % (AUTO) 0.4 %; EOSINOPHILS # (AUTO) 0.1 10^3/uL (0.0-0.7); HCT - HEMATOCRIT 29.1 % (37.0-47.0); HGB - HEMOGLOBIN 9.4 g/dL (12.0-16.0); LYMPHOCYTES # (AUTO) 1.3 10^3/uL (1.5-3.5); MEAN CORPUSCULAR HEMOGLOBIN 29.4 pg (27.0-31.0); MEAN CORPUSCULAR HGB CONC 32.3 g/dL (32.0-36.0); MEAN CORPUSCULAR VOLUME 90.9 fL (81.0-99.0); MEAN PLATELET VOLUME 8.8 fL (7.9-10.8); MONOCYTES # (AUTO) 0.8 10^3/uL (0.0-1.0); MONOCYTES % (AUTO) 6.6 %; NEUTROPHILS # (AUTO) 9.8 10^3/uL (1.5-6.6); NEUTROPHILS % (AUTO) 80.7 %; PLT - PLATELET COUNT 495 10^3/uL (130-450); RED CELL DISTRIBUTION WIDTH 12.9 % (12.0-15.0); WHITE BLOOD COUNT 12.1 x10^3/uL (4.8-10.8)
[2025-02-17] MEDS: AMOX/CLAV 875 MG/125 MG TABLET PO SCH (08:28)
[2025-02-17] MEDS: PSYLLIUM PACKET PO SCH (08:28)
--- NOTE | 2025-02-17 16:28 | PROVIDER PROGRESS NOTE ---
Assessment/Plan Problem List (1) Intra-abdominal abscess: Assessment/Plan: Hospital day 4 with intra-abdominal abscesses likely due to perforated appendicitis 1) FEN tolerating diet but minimally so. Expect better p.o. intake prior to discharge home 2) ID started on Augmentin today and transitioning from IV antibiotics. Cultures are still pending. Preliminary results that show gram-negative rods which is not surprising. This was discussed with the patient and her . Follow WC tomorrow if patient is afebrile and her bowel function returns could consider discharge. 3) Wound draining purulent material 20 to 30 mL every 24 hours. 4) Activity ambulating and should take shower today. (2) Perforated appendicitis: (3) Hyponatremia: (4) Hypothyroid: Qualifiers: Hypothyroidism type: unspecified Qualified Code(s): E03.9 - Hypothyroidism, unspecified (5) Depression: Qualifiers: Depression Type: unspecified Qualified Code(s): F32.A - Depression, unspecified Current Meds Current Meds: Current Medications Generic Name Dose Route Start Last Admin Trade Name Radha PRN Reason Stop Dose Admin Acetaminophen 650 mg 02/15/25 09:00 02/17/25 15:03 Acetaminophen 325 Mg Tablet PO 650 mg Q4HR LEN Administration Amoxicillin/Clavulanate Potassium 1 tab 02/17/25 09:00 02/17/25 08:28 Amox/Clav 875 Mg/125 Mg Tablet PO 1 tab BID LEN Administration Escitalopram Oxalate 10 mg 02/13/25 20:43 02/17/25 08:28 Escitalopram 10 Mg Tablet PO 10 mg DAILY LEN Administration Ibuprofen 600 mg 02/15/25 15:00 02/17/25 15:03 Ibuprofen 600 Mg Tablet PO 600 mg Q6H LEN Administration Levothyroxine Sodium 75 mcg 02/14/25 09:00 02/17/25 05:57 Levothyroxine 75 Mcg Tablet PO 75 mcg 0600 LEN Administration Ondansetron HCl 4 mg 02/13/25 20:43 02/15/25 22:17 Ondansetron 4 Mg/2 Ml Vial IVP 4 mg Q6HR PRN Administration Nausea / Vomiting Ondansetron HCl 4 mg 02/16/25 10:08 Ondansetron Odt 4 Mg Tablet TL Q6HR PRN Nausea / Vomiting Oxycodone HCl 5 mg 02/13/25 20:43 02/15/25 04:16 Oxycodone 5 Mg Tablet PO 5 mg Q4HR PRN Administration Pain 5 to 7 Patient Own Med [Lo 1 each 02/14/25 09:00 02/17/25 08:33 Loestrin Fe] PO 1 each DAILY LEN Administration Psyllium Hydrophilic Mucilloid 1 packet 02/17/25 09:00 02/17/25 08:28 Psyllium Packet PO 1 packet DAILY LEN Administration Sodium Chloride 10 ml 02/13/25 20:43 02/16/25 20:53 Sodium Chloride Flush 0.9% 10 Ml Syringe IVP 10 ml PRN PRN Administration NEEDED PER PROVIDER ORDERS Sodium Chloride 10 ml 02/14/25 01:00 02/17/25 08:33 Sodium Chloride Flush 0.9% 10 Ml Syringe IVP 10 ml 0100,0900,1700 LEN Administration Lab Result 02/17/25 05:43 02/16/25 05:16 Objective Vital Signs: Vital Signs - 24 hr 02/16/25 20:54 02/16/25 20:54 02/16/25 20:59 Temperature Temperature Source Pulse Rate [Brachial] Respiratory Rate Blood Pressure [Left Brachial artery] O2 Saturation O2 Source Sedation scale Pain Intensity 2 2 Pain Intensity [Generalized Abdomen] Pain Intensity [Right Abdomen] 2 02/17/25 00:00 02/17/25 00:51 02/17/25 00:53 Temperature 37.0 C Temperature Source Temporal Artery Scan Pulse Rate [Brachial] 74 Respiratory Rate 16 Blood Pressure [Left Brachial artery] 105/73 O2 Saturation 97 O2 Source Room air Sedation scale 0-Fully awake Pain Intensity 2 Pain Intensity [Generalized Abdomen] Pain Intensity [Right Abdomen] 2 02/17/25 03:41 02/17/25 03:42 02/17/25 05:58 Temperature Temperature Source Pulse Rate [Brachial] Respiratory Rate Blood Pressure [Left Brachial artery] O2 Saturation O2 Source Sedation scale Pain Intensity 2 1 Pain Intensity [Generalized Abdomen] 2 Pain Intensity [Right Abdomen] 02/17/25 08:00 02/17/25 08:00 02/17/25 08:27 Temperature 36.6 C Temperature Source Temporal Artery Scan Pulse Rate [Brachial] 72 Respiratory Rate 16 Blood Pressure [Left Brachial artery] 119/79 O2 Saturation 97 O2 Source Room air Sedation scale 0-Fully awake Pain Intensity 2 Pain Intensity [Generalized Abdomen] Pain Intensity [Right Abdomen] 2 02/17/25 08:27 02/17/25 08:34 02/17/25 15:03 Temperature Temperature Source Pulse Rate [Brachial] Respiratory Rate Blood Pressure [Left Brachial artery] O2 Saturation O2 Source Sedation scale Pain Intensity 2 2 3 Pain Intensity [Generalized Abdomen] Pain Intensity [Right Abdomen] 02/17/25 15:03 02/17/25 15:34 Temperature 36.5 C Temperature Source Temporal Artery Scan Pulse Rate [Brachial] 70 Respiratory Rate 16 Blood Pressure [Left Brachial artery] 112/72 O2 Saturation 96 O2 Source Room air Sedation scale 0-Fully awake Pain Intensity 3 0 Pain Intensity [Generalized Abdomen] Pain Intensity [Right Abdomen] Oxygen O2 Source Room air I&O (Last 24 Hrs): Intake and Output Totals x24h 02/15/25 02/16/25 02/17/25 23:59 23:59 23:59 Intake Total 2867 / 2867 1360 / 1360 1480 / 1480 Output Total 321 / 321 / 24 Balance 2546 / 2546 1336 / 1336 1455 / 1455 General: Alert, Oriented x3, Cooperative and No acute distress Comments/Notes: General: 39-year old female, appears stated age, well developed, well nourished, evaluated in room 2201 of [facility]'s MedSurg unit in the presence of her HEENT: Normocephalic, atraumatic, extraocular movement intact, mucous membranes pink and moist, sclera anicteric and not injected Neck: Supple without pain on palpation, mass or bruit Cardiac: Regular rate and rhythm without rub, gallop, or murmur Chest: Clear to auscultation bilaterally Abdomen: Soft, nontender, slightly decreased bowel sounds, no hepatomegaly, no splenomegaly, drain site dressed with light green purulent material in the drain, the drain was stripped by me and I showed her how to do it as well. Genitourinary: Deferred Rectal: Deferred Extremities: No gross neurovascular problem, no clubbing, cyanosis or edema Gait: Not evaluated. Psychiatric: Alert and oriented to person place and time, asks and answers questions appropriately, mood and affect appropriate Results Results: Laboratory Results WBC 12.1 x10^3/uL (4.8-10.8) H 02/17/25 05:43 RBC 3.20 10^6/uL (4.20-5.40) L 02/17/25 05:43 Hgb 9.4 g/dL (12.0-16.0) L 02/17/25 05:43 Hct 29.1 % (37.0-47.0) L 02/17/25 05:43 MCV 90.9 fL (81.0-99.0) 02/17/25 05:43 MCH 29.4 pg (27.0-31.0) 02/17/25 05:43 MCHC 32.3 g/dL (32.0-36.0) 02/17/25 05:43 RDW 12.9 % (12.0-15.0) 02/17/25 05:43 Plt Count 495 10^3/uL (130-450) H 02/17/25 05:43 MPV 8.8 fL (7.9-10.8) 02/17/25 05:43 Neut # (Auto) 9.8 10^3/uL (1.5-6.6) H 02/17/25 05:43 Lymph # (Auto) 1.3 10^3/uL (1.5-3.5) L 02/17/25 05:43 [place] # (Auto) 0.8 10^3/uL (0.0-1.0) 02/17/25 05:43 Eos # (Auto) 0.1 10^3/uL (0.0-0.7) 02/17/25 05:43 Baso # (Auto) 0.1 10^3/uL (0.0-0.1) 02/17/25 05:43 Absolute Nucleated RBC 0.00 x10^3/uL 02/17/25 05:43 Total Counted 100 02/14/25 05:05 Band Neuts % (Manual) 3 % (0-10) 02/14/25 05:05 Abnorm Lymph % (Manual) 0 % 02/14/25 05:05 Nucleated RBC % 0.0 /100WBC 02/17/25 05:43 Neutrophils # (Manual) 14.1 10^3/uL (1.5-6.6) H 02/14/25 05:05 Lymphocytes # (Manual) 1.9 10^3/uL (1.5-3.5) 02/14/25 05:05 Monocytes # (Manual) 1.6 10^3/uL (0.0-1.0) H 02/14/25 05:05 Eosinophils # (Manual) 0.0 10^3/uL (0-0.7) 02/14/25 05:05 Basophils # (Manual) 0.0 10^3/uL (0-0.1) 02/14/25 05:05 Differential Comment MANUAL DIFFERENTIAL 02/14/25 05:05 WBC Morphology NORMAL APPEARANCE (NORMAL) 02/14/25 05:05 Platelet Estimate NORMAL (130-450,000) (NORMAL) 02/14/25 05:05 Platelet Morphology NORMAL APPEARANCE (NORMAL) 02/14/25 05:05 RBC Morph Micro Appear NORMAL APPEARANCE (NORMAL) 02/14/25 05:05 Sodium 140 mmol/L (135-145) 02/16/25 05:16 Potassium 3.9 mmol/L (3.5-4.5) 02/16/25 05:16 Chloride 108 mmol/L (101-111) 02/16/25 05:16 Carbon Dioxide 26 mmol/L (21-32) 02/16/25 05:16 Anion Gap 6.0 (6-13) 02/16/25 05:16 BUN 7 mg/dL (6-20) 02/16/25 05:16 Creatinine 0.7 mg/dL (0.6-1.3) 02/16/25 05:16 Estimated GFR (MDRD) 93 (>89) 02/16/25 05:16 Glucose 86 mg/dL (74-104) 02/16/25 05:16 Calcium 8.3 mg/dL (8.5-10.3) L 02/16/25 05:16 Serum HCG, Qual NEGATIVE 02/13/25 14:48 Urine Color DARK YELLOW 02/13/25 16:36 Urine Clarity CLEAR (CLEAR) 02/13/25 16:36 Urine pH 6.0 PH (5.0-7.5) 02/13/25 16:36 Ur Specific [place] 1.020 (1.002-1.030) 02/13/25 16:36 Urine Protein 30 mg/dL (NEGATIVE) H 02/13/25 16:36 Urine Glucose (UA) NEGATIVE mg/dL (NEGATIVE) 02/13/25 16:36 Urine Ketones 15 mg/dL (NEGATIVE) H 02/13/25 16:36 Urine Occult Blood NEGATIVE (NEGATIVE) 02/13/25 16:36 Urine Nitrite NEGATIVE (NEGATIVE) 02/13/25 16:36 Urine Bilirubin SMALL (NEGATIVE) H 02/13/25 16:36 Urine Urobilinogen 1 (NORMAL) E.U./dL (NORMAL) 02/13/25 16:36 Ur Leukocyte Esterase NEGATIVE (NEGATIVE) 02/13/25 16:36 Urine RBC None Seen /HPF (0-5) 02/13/25 16:36 Urine WBC 0-3 /HPF (0-5) 02/13/25 16:36 Ur Squamous Epith Cells MANY Squamous (<= Few) H 02/13/25 16:36 Urine Bacteria Many /HPF (None Seen) H 02/13/25 16:36 Urine Mucus Few Strands 02/13/25 16:36 Ur Microscopic Review INDICATED 02/13/25 16:36 Urine Culture Comments NOT INDICATED 02/13/25 16:36 ABX Reporting Has patient been on IV antibiotics over the past 48 hours?: Yes Current Medications Current Medications Current Medications: Current Medications Generic Name Dose Route Start Last Admin Trade Name Freq PRN Reason Stop Dose Admin Acetaminophen 650 mg 02/15/25 09:00 02/17/25 15:03 Acetaminophen 325 Mg Tablet PO 650 mg Q4HR LEN Administration Amoxicillin/Clavulanate Potassium 1 tab 02/17/25 09:00 02/17/25 08:28 Amox/Clav 875 Mg/125 Mg Tablet PO 1 tab BID LEN Administration Escitalopram Oxalate 10 mg 02/13/25 20:43 02/17/25 08:28 Escitalopram 10 Mg Tablet PO 10 mg DAILY LEN Administration Ibuprofen 600 mg 02/15/25 15:00 02/17/25 15:03 Ibuprofen 600 Mg Tablet PO 600 mg Q6H LEN Administration Levothyroxine Sodium 75 mcg 02/14/25 09:00 02/17/25 05:57 Levothyroxine 75 Mcg Tablet PO 75 mcg 0600 LEN Administration Ondansetron HCl 4 mg 02/13/25 20:43 02/15/25 22:17 Ondansetron 4 Mg/2 Ml Vial IVP 4 mg Q6HR PRN Administration Nausea / Vomiting Ondansetron HCl 4 mg 02/16/25 10:08 Ondansetron Odt 4 Mg Tablet TL Q6HR PRN Nausea / Vomiting Oxycodone HCl 5 mg 02/13/25 20:43 02/15/25 04:16 Oxycodone 5 Mg Tablet PO 5 mg Q4HR PRN Administration Pain 5 to 7 Patient Own Med [Lo 1 each 02/14/25 09:00 02/17/25 08:33 Loestrin Fe] PO 1 each DAILY LEN Administration Psyllium Hydrophilic Mucilloid 1 packet 02/17/25 09:00 02/17/25 08:28 Psyllium Packet PO 1 packet DAILY LEN Administration Sodium Chloride 10 ml 02/13/25 20:43 02/16/25 20:53 Sodium Chloride Flush 0.9% 10 Ml Syringe IVP 10 ml PRN PRN Administration NEEDED PER PROVIDER ORDERS Sodium Chloride 10 ml 02/14/25 01:00 02/17/25 08:33 Sodium Chloride Flush 0.9% 10 Ml Syringe IVP 10 ml 0100,0900,1700 LEN Administration
[2025-02-18 06:34] LABS: BASOPHILS # (AUTO) 0.1 10^3/uL (0.0-0.1); BASOPHILS % (AUTO) 0.5 %; EOSINOPHILS # (AUTO) 0.1 10^3/uL (0.0-0.7); EOSINOPHILS % (AUTO) 0.9 %; HCT - HEMATOCRIT 29.2 % (37.0-47.0); HGB - HEMOGLOBIN 9.3 g/dL (12.0-16.0); MEAN CORPUSCULAR HEMOGLOBIN 29.2 pg (27.0-31.0); MEAN CORPUSCULAR HGB CONC 31.8 g/dL (32.0-36.0); MEAN CORPUSCULAR VOLUME 91.5 fL (81.0-99.0); MONOCYTES # (AUTO) 0.9 10^3/uL (0.0-1.0); MONOCYTES % (AUTO) 6.8 %; NEUTROPHILS # (AUTO) 9.5 10^3/uL (1.5-6.6); NEUTROPHILS % (AUTO) 75.3 %; PLT - PLATELET COUNT 541 10^3/uL (130-450); RED BLOOD COUNT 3.19 10^6/uL (4.20-5.40); WHITE BLOOD COUNT 12.6 x10^3/uL (4.8-10.8)
[2025-02-18 08:48] VITALS: TEMP 98.1
--- NOTE | 2025-02-18 15:02 | Discharge Summary ---
"Discharge Summary Admit Date: 02/13/25 Discharge Date: 02/18/25 Discharging Provider: Vernon Sanchez MD Code Status: Attempt Resuscitation DIAGNOSES Admission Diagnoses: Intra-abdominal abscess secondary to perforated appendicitis Discharge Diagnoses with Status of Each Condition: Draining. HPI History of Present Illness: Patient is a very pleasant 39 year old female with intra-abdominal infection necessitating interventional radiographic drainage and treamtent with IV then converted to po antibiotics. Drain still in place with continued drainage. CONSULTS | PROCEDURES Consultations: Dr. Duenas Procedures: None. HOSPITAL COURSE Hospital Course: Uncomplicated but had to wait for clinic response to antibiotics and appropriate drainage. CPT 04408 ALLERGIES Allergies Allergy/AdvReac Type Severity Reaction Status Date / Time Sulfa (Sulfonamide AdvReac Intermediate Rash Verified 02/14/25 12:36 Antibiotics) MEDICATIONS Ambulatory Orders Medication Instructions Recorded Confirmed norethindrone 1 mg-ethinyl See Rx Instructions .Route 12/18/24 02/14/25 estradiol 10 mcg (24)-iron 10 .COMPLEX #84 tabs mcg(2) tablet (Lo Loestrin Fe) celecoxib 200 mg capsule 200 mg PO BID PRN pain #20 caps 02/13/25 02/14/25 escitalopram oxalate 5 mg tablet 10 mg PO QDAY 02/13/25 02/14/25 (Lexapro) levothyroxine 75 mcg capsule 75 mcg PO QDAY 02/13/25 02/14/25 naltrexone 4.5 mg capsule 4.5 mg PO HS 02/14/25 02/14/25 (Lotrexone) amoxicillin 875 mg-potassium 1 tab PO BID intra-abdominal 02/18/25 clavulanate 125 mg tablet infection #20 tabs ondansetron 4 mg disintegrating 4 mg translingual Q6HR PRN Nausea 02/18/25 tablet / Vomiting #10 tabs sodium chloride 0.9 % (flush) 5 ml IV Q12H #200 mL 02/18/25 (Normal Saline Flush 0.9 % injection syringe) PHYSICAL EXAM AT DISCHARGE General Appearance: positive No acute distress and Alert Eyes Bilateral: positive Normal inspection, EOMI, No lid inflammation, Conjunctivae nml and No scleral icterus ENT: positive No signs of dehydration Neck: positive Trachea midline Respiratory: positive Chest non-tender, No respiratory distress and Breath sounds nml Cardiovascular: positive Regular rate & rhythm, No murmur and No gallop Abdomen: positive Non-tender, No organomegaly, Nml bowel sounds, No distention and Other (Drain site C/D/I.) Skin: positive Color nml, No rash and Warm Extremities: positive Non-tender and Full ROM Neurologic/Psychiatric: positive Oriented x3, Motor nml, Sensation nml and Mood/affect nml LABS 02/18/25 05:56 02/16/25 05:16 QUALITY (Female Hip Fx Only) Was patient sent home on osteoporosis medication?: No FOLLOW UP Follow Up: Dr. Duenas on 03-01-2025. TIME SPENT Time Spent in Discharge (Minutes): 45 Discharge Plan Discharge Patient Disposition: [facility], Self Care Condition: Stable Prescriptions: New ondansetron 4 mg Tablet,Disintegrating 4 mg translingual Q6HR PRN (Reason: Nausea / Vomiting) Qty: 10 0RF amoxicillin-pot clavulanate 875-125 mg Tablet 1 tab PO BID Qty: 20 0RF sodium chloride 0.9 % (flush) [Normal Saline Flush] Syringe 5 ml IV Q12H Qty: 200 0RF Rx Instructions: Use to flush drain twice daily as needed. Continued Lo Loestrin Fe 1 mg-10 mcg (24)/10 mcg (2) tablet See Rx Instructions .ROUTE .COMPLEX Qty: 84 0RF Dose Instruction: take 1 tablet by mouth once daily Rx Instructions: take 1 tablet by mouth once daily Lotrexone 4.5 mg capsule 4.5 mg PO HS escitalopram oxalate [Lexapro] 5 mg tablet 10 mg PO QDAY levothyroxine 75 mcg capsule 75 mcg PO QDAY celecoxib 200 mg capsule 200 mg PO BID PRN (Reason: pain) Qty: 20 0RF Activity Restrictions: Activity as Tolerated Activity Restrictions/Additional Instructions: Try to avoid strenuous activity that may dislodge drain. Diet: Regular Plan of Treatment: Remove drain when drainage wanes and support patient with antibiotics until infection resolved. Then discuss likelihood of elective resection at a later date. Print Language: Pakistani Stand Alone Forms: PCP List Follow-up Care: Mahi Duenas MD [Provider Admit Priv/Credential] - (follow up appointment on 03/01/25 at 1115. ) [facility] [place] [Primary Care Provider] -"
[2025-02-18 15:50] VITALS: BP 120/76; O2SAT 99
== END 2025-02-18 16:15 | disposition home or self-care (01) | DRG 372 ==
LOC: ED 15:32 → MS2 19:36
PROVIDERS: ADMIT Physician Assistant Medical; ATTEND Physician Assistant Medical
DX: E03.9 Hypothyroidism, unspecified; F32.A Depression, unspecified; E87.1 Hypo-osmolality and hyponatremia; K35.33 Acute appendicitis with perforation, localized peritonitis, and gangrene, with abscess; Z79.899 Other long term (current) drug therapy; D64.9 Anemia, unspecified; Z79.890 Hormone replacement therapy